=== PATIENT | female | born 1990 | race Caucasian/White ===

== ENCOUNTER 2019-03-14 14:11 | Outpatient (REF) | payer MEDICAID, SELFPAY ==
--- NOTE | 2019-03-14 14:00 | PAPFT_PTH ---
PATIENT: Jose Clark LOC: [facility] U#:[id number] AGE/SX: 28/F ROOM: RE03/14/[address]: ASTRID Allison : 1990 BED: DIS: 03/14/2019 SPEC #: [id number] RECD: 03/14/19 17:52 STATUS: MIKE RERissa #: [id number] ONELIA: 03/14/19 14:[address]: Blanca Norton DEPT: [facility] Cytology RECD BY: Radha Campo ENTERED: 03/14/19 17:52 SP TYPE: PAPFT OTHR DR: Odette Howard Tissues: 1 - CX/ENDOCX FOR PAP SMEARS Procedures: PAP THIN PREP/UVM Screening Comments: [id number]
== END 2019-03-14 14:31 ==
LOC: LBN 14:11
PROVIDERS: PCP Nurse Practitioner Family; Visit Provider Nurse Practitioner Family
DX: Z12.4 Encounter for screening for malignant neoplasm of cervix (principal)
CPT/HCPCS: 88142

== ENCOUNTER 2019-03-17 01:32 | Outpatient (CLI) | payer MEDICAID, SELFPAY ==
--- NOTE | 2019-03-17 12:55 | DI.US_ITS ---
SYMPTOMS/DIAGNOSIS: PELVIC CRAMPING WITH IUD, R10.2 PELVIC ULTRASOUND: Pelvic ultrasound was performed transabdominally and transvaginally. Please see the accompanying data sheet for measurements of the pelvic structures. No free fluid identified in the cul-de-sac. There is an IUD in place in the endometrial cavity. There is a 34 mm in diameter simple cyst of the left ovary consistent with a functional cyst. Otherwise the ovaries have a normal follicular appearance. The endometrial stripe is about 4 mm in thickness. Limited scanning of the kidneys shows no specific abnormality. CONCLUSION: IUD in place. Left ovarian presumed functional cyst, 34 mm. No other specific findings.
== END 2019-03-17 01:52 ==
PROVIDERS: PCP Nurse Practitioner Family; Visit Provider Nurse Practitioner Family
DX: R10.2 Pelvic and perineal pain (principal); Z30.431 Encounter for routine checking of intrauterine contraceptive device; N83.292 Other ovarian cyst, left side
CPT/HCPCS: 76830; 76856

== ENCOUNTER 2020-03-19 11:01 | Outpatient (REF) | payer MEDICAID, SELFPAY ==
--- NOTE | 2020-03-19 10:30 | PAPFT_PTH ---
PATIENT: Jose Clark LOC: [facility] U#:[id number] AGE/SX: 29/F ROOM: RE03/19/[address]: ASTRID Allison : 1990 BED: DIS: 03/19/2020 SPEC #: [id number] RECD: 03/19/20 12:53 STATUS: MIKE REQ #: [id number] ONELIA: 03/19/20 10:[address]: Blanca Norton DEPT: [facility] Cytology RECD BY: Radha Campo ENTERED: 03/19/20 12:53 SP TYPE: PAPFT OTHR DR: Odette Howard Tissues: 1 - CX/ENDOCX FOR PAP SMEARS Procedures: PAP THIN PREP/UVM Screening Comments: [id number]
[2020-03-21 14:01] LABS: Chlamydia Result Negative (Negative); GC Result Negative (Negative)
== END 2020-03-19 11:21 ==
LOC: LBN 11:01
PROVIDERS: PCP Nurse Practitioner Family; Visit Provider Nurse Practitioner Family
DX: Z11.3 Encounter for screening for infections with a predominantly sexual mode of transmission (principal); Z12.4 Encounter for screening for malignant neoplasm of cervix
CPT/HCPCS: 87491; 87591; 88142

== ENCOUNTER 2022-04-10 10:04 | Outpatient (REF) | payer MEDICAID, SELFPAY ==
--- NOTE | 2022-04-10 10:00 | PAPFT_PTH ---
PATIENT: Jose Clark LOC: [facility] U#:[id number] AGE/SX: 31/F ROOM: RE04/10/[address]: ASTRID Allison : 1990 BED: DIS: 04/10/2022 SPEC #: [id number] RECD: 04/10/22 13:12 STATUS: MIKE RERissa #: [id number] ONELIA: 04/10/22 10:[address]: Blanca Norton DEPT: [facility] Cytology RECD BY: Radha Campo ENTERED: 04/10/22 13:12 SP TYPE: PAPFT OTHR DR: Odette Howard Tissues: 1 - CX/ENDOCX FOR PAP SMEARS Procedures: PAP THIN PREP/UVM Screening Comments: [id number]
== END 2022-04-10 10:05 | disposition home or self-care (01) ==
LOC: LBN 10:04
PROVIDERS: PCP Nurse Practitioner Family; Visit Provider Nurse Practitioner Family
DX: Z12.4 Encounter for screening for malignant neoplasm of cervix (principal)
CPT/HCPCS: 88142

== ENCOUNTER 2023-08-09 12:14 | Emergency (ER) | payer MEDICAID, SELFPAY ==
--- NOTE | 2023-08-09 12:15 | DI.RAD_ITS ---
Exam(s) XR FOOT LT COMPLETE XR ANKLE LT COMPLETE EXAM: XR ANKLE LT COMPLETE CLINICAL HISTORY: Fall, Left ankle pain TECHNIQUE: 2D digital imaging was performed. Three views of the ankle and three views of the foot.. COMPARISON: CR XR FOOT LT COMPLETE from 08/09/2023 FINDINGS: BONES: No acute fracture is present. No bony destructive lesion is seen. JOINTS:The ankle mortise is normally aligned. SOFT TISSUE: Normal. IMPRESSION: Unremarkable radiographs of the left ankle and foot. DATA REPOSITORY: RADIATION DOSE DELIVERED:
[2023-08-09 12:16] VITALS: BP 131/86; PULSE 74; RESP 14; TEMP 36.7; O2SAT 99
--- NOTE | 2023-08-09 12:29 | ED.GENADUL_ITS ---
Discharge Plan Disposition Patient Disposition: Home Condition: Stable Discharge Details Clinical Impression: Left ankle sprain Primary Care Provider: Odette Howard ED Provider: Amber Huerta Home Meds and New Rx's Prescriptions: No Action ParaGard T 380A 380 square mm intrauterine device 1 device intrauterine ONCE Qty: 1 0RF Rx Instructions: as a single dose multivitamin [Daily Multi-Vitamin] tablet 1 tab PO DAILY fluoxetine 40 mg capsule 40 mg PO DAILY Qty: 90 0RF Discharge Instructions Instructions: Ankle Sprain (ED) Additional Instructions: Wear the walking boot as needed no evidence of fracture or broken bones. Advance weight bearing as tolerated. Rest, ice, compression, elevation. Follow up with primary care provider in 3-5 days. Return to ED sooner if any worsening or concerns. Increase oral fluids. Please take Tylenol or Ibuprofen with food every 4-6 hours as needed for pain and swelling. Referrals: Odette Howard [Primary Care Provider] - 5 days Discharge Data Discharge Date/Time-TO BE ENTERED AT DEPARTURE: 08/09/23 13:33 Medical Decision Making 33 year old female presents to the ED with cc of left foot and ankle pain after a mechanical inversion type injury last night after missing a step. Reports increased pain with weight bearing. No obvious deformity, no signficant swelling. Did take Ibuprofen [employer]ER. XR ordered and UPT. Patient states she just finished her period. XR WNL, patient placed n a walking boot, instructed on Rice procedures and crutches ordered. This text was generated using [employer] dictation system, please disregard any oddities of phrase or misspellings. HPI General Mode of arrival: ambulatory . Date/Time Provider Initiated Documentation: 08/09/23 12:21 . Limitations to Documentation: no limitations . Information obtained by: patient, RN notes reviewed and old records reviewed . HPI Narrative: 33 year old female presents to the ED with cc of left foot and ankle pain after a mechanical inversion type injury last night after missing a step. Reports increased pain with weight bearing. No obvious deformity, no signficant swelling. Did take Ibuprofen [employer] REPA[employer]ER. Related Data Home Medications Medication Instructions Recorded Confirmed multivitamin (Daily Multi-Vitamin 1 tab PO DAILY 03/14/19 07/18/21 tablet) copper 380 square mm intrauterine 1 device intrauterine ONCE #1 ea 10/28/20 07/18/21 device (ParaGard T 380A) fluoxetine 40 mg capsule 40 mg PO DAILY #90 caps 04/19/23 Previous Rx's Medication Instructions Recorded copper 380 square mm intrauterine 1 device intrauterine ONCE #1 ea 10/28/20 device (ParaGard T 380A) fluoxetine 40 mg capsule 40 mg PO DAILY #90 caps 04/19/23 Allergies Allergy/AdvReac Type Severity Reaction Status Date / Time erythromycin base AdvReac Mild Nausea Verified 04/10/22 09:21 General Stated Complaint: Orthopedic EVER: 4 Review of Systems Musculoskeletal Musculoskeletal: Reports as per HPI and Reports arthralgias PFSH All Active Problems (Updated 08/09/23 @ 13:22 by Amber Huerta NP) Left ankle sprain (Acute) Anxiety (Chronic) worse with menses IUD surveillance (Acute 10/28/20) Paragard Contraception (Acute) Medical History Tobacco use 06/05/15 quit with + UPT Family History Mother No problems noted. Father No problems noted. Sister No problems noted. Brother Asthma Brother No problems noted. Social History Smoking/Tobacco Use Status: Former Tobacco Use Smoking risk assessment performed?: Yes Alcohol Intake: never Drug use: Never Substance use type: does not use Do you feel safe in your relationship?: Yes History History 3 Para 3 Hx # Term Pregnancies Multiple births Hx # Pregnancies Ectopic pregnancies AB induced Hx Number of Living Children AB spontaneous Exam Extrem Left lower extremity: ankle and foot Details: normal to inspection and tenderness Course Vital Signs Vital signs: Vital Signs Temperature 36.7 C 08/09/23 12:16 Pulse 74 08/09/23 12:16 Respiratory Rate 14 08/09/23 12:16 Blood Pressure 131/86 08/09/23 12:16 Pulse Oximetry 99 08/09/23 12:16 Temperature 36.7 C 08/09/23 12:16 Temperature Source Temporal Artery Scan 08/09/23 12:16 Pulse 74 08/09/23 12:16 Respiratory Rate 14 08/09/23 12:16 Respiratory Effort Normal 08/09/23 12:19 Blood Pressure 131/86 08/09/23 12:16 Blood Pressure Position Sitting 08/09/23 12:16 Pulse Oximetry 99 08/09/23 12:16 Oxygen Delivery Method Room Air 08/09/23 12:16 Oxygen Flow Rate 0 08/09/23 12:16 Pain Level 7 08/09/23 12:16
== END 2023-08-09 13:33 | disposition home or self-care (01) ==
PROVIDERS: Emergency Provider Registered Nurse Emergency; PCP Nurse Practitioner Family
DX: M25.572 Pain in left ankle and joints of left foot (principal); S93.402A Sprain of unspecified ligament of left ankle, initial encounter; W10.8XXA Fall (on) (from) other stairs and steps, initial encounter
CPT/HCPCS: 99283; 73610; 73630

== ENCOUNTER 2025-04-27 15:08 | Outpatient (CLI) | payer MEDICAID, SELFPAY ==
[2025-04-27 15:24] LABS: HCG Quant, Pregnancy 16 mIU/mL (1-3)
== END 2025-04-27 15:09 | disposition home or self-care (01) ==
LOC: LBO 15:08
PROVIDERS: PCP Nurse Practitioner Family; Visit Provider Advanced Practice Midwife
DX: Z32.01 Encounter for pregnancy test, result positive (principal)
CPT/HCPCS: 36415; 84702

== ENCOUNTER 2025-04-30 16:01 | Outpatient (CLI) | payer MEDICAID, SELFPAY ==
[2025-04-30 17:36] LABS: HCG Quant, Pregnancy 4 mIU/mL (1-3)
== END 2025-04-30 16:02 | disposition home or self-care (01) ==
LOC: LBO 16:01
PROVIDERS: PCP Nurse Practitioner Family; Visit Provider Advanced Practice Midwife
DX: O20.0 Threatened abortion (principal)
CPT/HCPCS: 36415; 84702

== ENCOUNTER 2025-08-08 12:40 | Outpatient (CLI) | payer MEDICAID, SELFPAY ==
[2025-08-08 13:13] LABS: Abs Immature Grans 0.04 10^3/uL (0.0-0.06); HCT 40.3 % (36.0-46.0); HGB 13.6 g/dL (11.2-15.7); Immature Grans % 0.6 %; MCH 28.4 pg (27.0-33.0); MCHC 33.7 % (32.0-36.0); MCV 84 fL (80-95); MPV 8.8 fL (8.0-11.0); Platelet Count 274 10^3/uL (130-400); RBC 4.79 10^6/uL (3.93-5.22); RDW 12.4 % (11.7-14.6); RDW-SD 37.9 fL; WBC 7.02 10^3/uL (4.4-10.8)
[2025-08-08 13:28] LABS: HCG Quant, Pregnancy 124 mIU/mL (1.5-4.2)
[2025-08-08 13:32] LABS: TSH (W/Ref FT4) 1.70 uIU/mL (0.55-4.78)
[2025-08-08 13:33] LABS: ALT 19 U/L (10-49); AST 24 U/L (<34); Albumin 5.1 g/dL (3.4-5.0); Alkaline Phosphatase 81 U/L (46-116); Anion Gap 9.2 mmol/L (3-11); BUN 14 mg/dL (9-23); Bilirubin, Total 0.30 mg/dL (0.2-1.2); CO2 25.8 mmol/L (20.0-31.0); Calcium 9.7 mg/dL (8.3-10.6); Chloride 104 mmol/L (98-107); Glucose 90 mg/dL (74-106); Potassium 3.8 mmol/L (3.5-5.1); Sodium 139 mmol/L (136-145); Total Protein 8.4 g/dL (5.7-8.2)
[2025-08-08 22:56] LABS: FSH 2.2 mIU/mL (See Note)
[2025-08-08 22:58] LABS: LH <0.3 mIU/mL (See Note)
== END 2025-08-08 12:41 | disposition home or self-care (01) ==
LOC: LBO 12:40
PROVIDERS: PCP Nurse Practitioner Family; Visit Provider Obstetrics & Gynecology
DX: N93.8 Other specified abnormal uterine and vaginal bleeding (principal); Z32.01 Encounter for pregnancy test, result positive
CPT/HCPCS: 36415; 80053; 83498; 83001; 83002; 84146; 84443; 84702; 85025

== ENCOUNTER 2025-08-10 13:02 | Outpatient (CLI) | payer MEDICAID, SELFPAY ==
[2025-08-10 13:02] LABS: HCG Quant, Pregnancy 330 mIU/mL (1.5-4.2)
== END 2025-08-10 13:03 | disposition home or self-care (01) ==
LOC: LBO 13:02
PROVIDERS: PCP Nurse Practitioner Family; Visit Provider Obstetrics & Gynecology
DX: Z32.01 Encounter for pregnancy test, result positive (principal)
CPT/HCPCS: 36415; 84702

== ENCOUNTER → 2025-08-15 01:31 | Outpatient (CLI) | payer MEDICAID, SELFPAY ==
--- NOTE | 2025-08-15 12:00 | DI.US_ITS ---
Exam(s) US PELVIS TRANSVAGINAL EXAM: US PELVIS TRANSVAGINAL CLINICAL HISTORY: anatomy,miscarriage,O03.9. TECHNIQUE: Transabdominal and transvaginal pelvic ultrasound was performed using standard protocol. COMPARISON: US US PELVIS TRANSVAGINAL from 03/17/2019 FINDINGS: UTERUS: Position: Anteverted. Size: 8.5 long by 4.2 AP by 5.3 transverse cm Endometrium: 0.9 cm. Normal for patient's menstrual status. There is a round 0.4 x 0.3 x 0.4 cm cystic structure in the fundal endometrium. No pole or yolk sac is identified. Myometrium: Unremarkable. Cervix: Unremarkable. OVARIES: Right: 1.5 x 1.0 x 1.4 cm Cyst or mass: No suspicious cystic or solid masses. Left: 3.4 x 1.4 x 2.0 cm Cyst or mass: No suspicious cystic or solid masses. DOPPLER: Color: Symmetric and uniform flow to both ovaries. CUL-DE-SAC: Free fluid: None. Other: None. IMPRESSION: 1. Normal-appearing uterus with endometrial stripe within normal limits. 2. There is a 0.4 x 0.3 x 0.4 cm cystic structure in the fundal endometrium. No pole or yolk sac is identified. This may represent a gestational sac. Its size is at of range for measurements. Please correlate with patient's clinical history. Follow-up pelvic ultrasound may be obtained. Correlation with patient's beta HCG if clinically appropriate. 3. Unremarkable bilateral ovaries. DATA REPOSITORY:
== END ==
LOC: DI 01:31
PROVIDERS: PCP Nurse Practitioner Family; Visit Provider Obstetrics & Gynecology
DX: O03.9 Complete or unspecified spontaneous abortion without complication (principal)
CPT/HCPCS: 76830; 76856

== ENCOUNTER 2025-08-15 02:08 | Outpatient (CLI) | payer MEDICAID, SELFPAY ==
[2025-08-15 08:52] LABS: HCG Quant, Pregnancy 2819 mIU/mL (1.5-4.2)
== END 2025-08-15 02:09 | disposition home or self-care (01) ==
LOC: LBO 02:09
PROVIDERS: PCP Nurse Practitioner Family; Visit Provider Obstetrics & Gynecology
DX: Z32.01 Encounter for pregnancy test, result positive (principal)
CPT/HCPCS: 36415; 84702

== ENCOUNTER → 2025-09-11 11:15 | Outpatient (CLI) | payer MEDICAID, SELFPAY ==
--- NOTE | 2025-09-11 11:00 | DI.US_ITS ---
Exam(s) US OB 1ST TRIMESTER EXAM: US OB 1ST TRIMESTER CLINICAL HISTORY: Viability, POSITIVE TEST, Z32.01, WET READING TO [facility] AFTER. TECHNIQUE: First trimester obstetrical ultrasound was performed. COMPARISON: US POCUS EXAM from 09/11/2025 FINDINGS: There is an intrauterine gestational sac which contains a normal appearing yolk sac. pole identified with crown-rump length of [place]-rump length measurement is difficult to measure as the pole is somewhat amorphous, but measures approximately mm, corresponding to 7 weeks and 3 days gestational age. There is no heart rate identified Maternal ovaries: Right ovary measures 2.5 x 1.9 x 1.8 cm Left ovary measures 2.5 x 1.5 x 2.7 cm. There is no fluid in the cul-de-sac and adnexal regions. IMPRESSION:: Nonviable intrauterine gestation as described above. There is no heart rate detected. DATA REPOSITORY:
== END ==
LOC: DI 11:18
PROVIDERS: PCP Nurse Practitioner Family; Visit Provider Obstetrics & Gynecology
DX: Z32.01 Encounter for pregnancy test, result positive (principal); O20.0 Threatened abortion
CPT/HCPCS: 76801

== ENCOUNTER → 2025-09-17 12:50 | Outpatient (CLI) | payer MEDICAID, SELFPAY ==
--- NOTE | 2025-09-17 12:30 | DI.US_ITS ---
Exam(s) US PELVIS TRANSVAGINAL EXAM: US PELVIS TRANSVAGINAL CLINICAL HISTORY: threatened miscarriage,020.0 TECHNIQUE: Ultrasound of the pelvis was performed both transabdominal and transvaginal. COMPARISON: US US OB 1ST TRIMESTER from 09/11/2025 FINDINGS: UTERUS: Nongravid and anteverted Measures 8.6 cm length x 4.4 cm AP x 0.6 cm wide. There are no uterine fibroids. Endometrial thickness measures 6 mm and is mildly heterogeneous There is no fluid in the endometrial canal. CERVIX: There is no fluid in the endocervical canal. RIGHT OVARY: Measures 1.9 x 1.5 x 2.3 cm No significant cysts nor masses evident in the right ovary. LEFT OVARY: Measures 1.8 x 2.2 x 2.0 cm No significant cysts nor masses evident in the left ovary. CUL-DE-SAC: There no extraovarian adnexal masses and there is no free fluid in the adnexal regions nor within the cul-de-sac.. IMPRESSION: 1. Endometrial thickness is 6 millimeters appears slightly heterogeneous. Endocervical canal is closed. 2. No abnormal ovarian findings. 3. No free fluid evident in the adnexal regions and cul-de-sac. DATA REPOSITORY:
== END ==
LOC: DI 12:50
PROVIDERS: PCP Nurse Practitioner Family; Visit Provider Obstetrics & Gynecology
DX: O20.0 Threatened abortion (principal)
CPT/HCPCS: 76830; 76856